=== PATIENT | female | born 1960 | race Two or more races ===

== ENCOUNTER 2016-06-21 13:11 | Emergency (ER) | payer BC ==
[~2016-06-21] VITALS: Ht 157.5 cm; Wt 106.8 kg
[~2016-06-21 13:11] MED LIST: AMLO-20 PO; ASPI-664 PO; ATEN-51 PO; CILO50TA PO; GEMF600T PO; TRIA1CAP44 PO
[2016-06-21 13:24] VITALS: Ht 157.5 cm; Wt 106.8 kg
[2016-06-21] MEDS ORDERED: HYDROCODONE/APAP (5/325) TAB PO ONE (14:30)
--- NOTE | 2016-06-21 14:38 | RADRPT ---
PROCEDURE: US left lower extremity veins. CLINICAL INDICATION: Left leg pain and swelling. TECHNIQUE: Multiple longitudinal and transverse images of the left lower extremity veins were obta ined with garcia scale and color Doppler imaging. The common femoral vein, femoral vein, and popliteal vein were evaluated. 2D grayscale measurements with compression sonography, pulsed Doppler, color D oppler, and pulsed Doppler with augmentation. COMPARISON: No prior studies are available for comparison. FINDINGS: The left common femoral, femoral and popliteal veins are normally compressible throughout. Color fl ow demonstrates normal filling of the vessels. Normal waveforms are visualized and there is normal response to augmentation. There is a left popliteal fossa Chan's cyst measuring 3.5 x 2.4 x 4.5 cm. IMPRESSION: 1. No evidence of deep vein thrombosis involving the left lower extremity. 2. Left popliteal fossa Chan's cyst measuring 3.5 x 2.4 x 4.5 cm. RPTAT: QQ .Glenn Vasquez MD, MD Date Time Electronically viewed and signed by .Glenn Vasquez MD, on 06/21/2016 14:38 .R/
--- NOTE | 2016-06-21 16:45 | RADRPT ---
PROCEDURE: Left knee radiographs. CLINICAL INDICATION: Left knee pain. TECHNIQUE: Three views. Weight bearing. Frontal, lateral, and patellar view. COMPARISON: No prior studies are available for comparison. FINDINGS: There is no fracture or dislocation. The soft tissues are normal. There are degenerative changes with osteophytes arising from all 3 joint compartment margins. There is medial, lateral, and patellofemoral joint compartment narrowing. There is a possible loose body in the lateral joint compartment measuring 0.8 x 0.3 cm. There is no lytic or blastic lesion. There is no radiopaque foreign body. IMPRESSION: 1. Moderate degenerative changes of the left knee. 2. Possible loose body in the lateral joint compartment. 3. No acute abnormality. RPTAT: QQ .Glenn Vasquez MD, Date Time Electronically viewed and signed by .Glenn Vasquez MD, on 06/21/2016 16:44 .R/
--- NOTE | 2016-06-21 17:12 | ERD ---
ER Documentation Chief Complaint Date/Time DATE: 06/21/16 TIME: 17:11 Chief Complaint LEFT KNEE PAIN AND SWELLING X 5 DAYS. DENIES TRAUMA/FALLS HPI This is a [age]-year-old female who presents to the emergency room for evaluation of left knee pain and swelling. The patient states that her symptoms have been present for approximately 5 days duration. She denies any trauma to the area, describes her pain as an achy pain. She is able to ambulate and denies any numbness or tingling in extremity. She denies any recent travel, recent surgery or ROS All systems reviewed and are negative except as per history of present illness. Medications Home Meds Reported Medications Cilostazol* (Cilostazol*) 50 Mg Tablet, 50 MG PO BID 07/30/13 Triamterene-HCTZ (Triamterene-HCTZ) 1 Cap Capsule, 1 CAP PO DAILY 07/30/13 Aspirin* (Aspirin* EC) 81 Mg Tablet.dr, 81 MG PO DAILY 07/30/13 Amlodipine-Benazepril (Amlodipine-Benazepril) 1 Cap Capsule, 1 CAP PO DAILY 07/30/13 Atenolol* (Atenolol*) 25 Mg Tablet, 25 MG PO DAILY 07/30/13 Gemfibrozil* (Lopid*) 600 Mg Tablet, 600 MG PO BID, TAB 07/30/13 Allergies Allergies: Coded Allergies: Penicillins (Verified Allergy, Unknown, 05/22/15) PMhx/Soc History of Surgery: Yes (C-sectionx2) Anesthesia Reaction: No 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 Neck: Full range of motion..~ No meningismus. Resp: Clear to auscultation bilaterally Cardio: Regular rate and rhythm, no murmurs Abd: Soft, non tender, non distended. Normal bowel sounds Skin: No petechiae or rashes Back: No midline or flank tenderness Ext: Mild soft tissue swelling noted around the patella, no calf tenderness no cyanosis, or edema Neur: Awake and alert Psych: Normal Mood and Affect Results 24 hrs Current Medications Medications (Trade) Dose Ordered Sig/Shannan Route PRN Reason Start Time Stop Time Status Last Admin Dose Admin Acetaminophen/ Hydrocodone Bitart (Medon (5/325)) 1 tab ONCE ONCE PO 06/21/16 14:30 06/21/16 14:31 DC 06/21/16 15:00 Procedures/MDM X-ray Knee 3V Interpreted by me: Bones: [No fracture] Joints: [No dislocation] Foreign body: [None] Ultrasound left lower extremity: No DVT This 45-year-old female presents to the ER for evaluation of left-sided knee pain. This patient's knee pain is atraumatic. I did evaluate this patient she had mild soft tissue swelling in the knee. X-rays normal, ultrasound of the left lower cavity does not show any DVT findings. She was given Medon. She is emanating in the emerge, I can keep her eyes, and Medon for breakthrough pain at night. Departure Diagnosis: Primary Impression: Knee pain Condition: Stable BROOKE AVENDAÑO DO Jun 21, 2016 17:12
[2016-06-21] MEDS ORDERED: HYDR-906 PO (17:16)
[2016-06-21] MEDS ORDERED: IBUP800T25 PO (17:16)
[2016-06-21] MEDS ORDERED: IBUPROFEN 600 MG TAB PO ONE (17:30)
[2016-06-21 18:49] VITALS: BP 144/85; PULSE 80; RESP 20; TEMP 98.2
== END 2016-06-21 18:50 | disposition home or self-care (01) ==
LOC: E/R 13:11
DX: M25.562 Pain in left knee (principal); I10 Essential (primary) hypertension; E11.9 Type 2 diabetes mellitus without complications; F17.210 Nicotine dependence, cigarettes, uncomplicated; Z79.82 Long term (current) use of aspirin
CPT/HCPCS: 73562; 93971; Z7502; Z7610